=== PATIENT | female | born 1950 | race Caucasian/White ===

== ENCOUNTER 2024-06-08 16:40 | Inpatient (IN) | payer MEDICARE, OTHER ==
[~2024-06-08] VITALS: Ht 157.5 cm; Wt 79.0 kg
[2024-06-08 18:00] VITALS: BP 157/59; PULSE 70; RESP 18; TEMP 97.7; O2SAT 98
[2024-06-08 20:00] VITALS: RESP 18; O2SAT 98
[2024-06-08] MEDS ORDERED: FAMO40TA59 PO (21:49)
[2024-06-08] MEDS ORDERED: FENO135C4 PO (21:49)
[2024-06-08] MEDS ORDERED: LISI40TA13 PO (21:49)
[2024-06-08] MEDS ORDERED: SYN0.088T PO (21:49)
[2024-06-08 22:00] VITALS: BP 149/58; PULSE 68; RESP 18; TEMP 98; O2SAT 97
[2024-06-08] MEDS ORDERED: acetaminophen 325mg tablet PO PRN (22:00)
[2024-06-08] MEDS ORDERED: mag hydrox/Alum hydrox/simeth 30ml oral suspension PO PRN (22:00)
[2024-06-08] MEDS ORDERED: magnesium Cl slow-release 64mg tablet PO PRN (22:00)
[2024-06-08] MEDS ORDERED: potassium Cl 40MEQ/1/2NS 520ml 520 ML IV PRN (22:00)
[2024-06-08] MEDS ORDERED: magnesium sulf-water 4G/100mL 100 ML IV PRN (22:00)
[2024-06-08] MEDS: normal saline 1000ml 1,000 ML IV SCH (22:00)
[2024-06-08] MEDS ORDERED: HYDROcodone/acetaminophen 5mg/325mg tablet PO PRN (22:00)
[2024-06-08] MEDS ORDERED: magnesium sulf-water 2g/50mL 50 ML IV PRN (22:00)
[2024-06-08] MEDS ORDERED: ondansetron/PF 4mg/2ml inj IV PRN (22:00)
[2024-06-08 22:49] LABS: BASOPHILS % (AUTO) 0.4 % (0-1); EOSINOPHILS # (AUTO) 0.9 X10'3 (0-0.9); EOSINOPHILS % (AUTO) 10.8 % (0-6); HEMATOCRIT 41.5 % (35.0-45.0); LYMPHOCYTES # (AUTO) 1.1 X10'3 (1.1-4.8); LYMPHOCYTES % (AUTO) 12.7 % (21-51); MEAN CORPUSCULAR HEMOGLOBIN 30.7 PG (27.0-31.0); MEAN CORPUSCULAR HGB CONC 33.9 g/dL (33.0-36.5); MEAN CORPUSCULAR VOLUME 90.8 FL (78-98); MEAN PLATELET VOLUME 9.1 FL (7.4-10.4); MONOCYTES # (AUTO) 0.6 X10'3 (0-0.9); MONOCYTES % (AUTO) 6.8 % (2-12); NEUTROPHILS # (AUTO) 5.9 X10'3 (1.8-7.7); NEUTROPHILS % (AUTO) 69.3 % (42-75); PLATELET COUNT 217 X10'3 (140-440); RED BLOOD COUNT 4.57 X10'6 (4.20-5.60); WHITE BLOOD COUNT 8.5 X10'3 (4.5-11.0)
[2024-06-08 23:01] LABS: INR 1.1 INR; PROTHROMBIN TIME 11.9 SECONDS (9.0-12.0)
[2024-06-08 23:10] LABS: ALANINE AMINOTRANSFERASE 39 U/L (12-78); ALBUMIN 2.7 G/DL (3.4-5.0); ALBUMIN/GLOBULIN RATIO 0.9 (1.1-1.5); ALKALINE PHOSPHATASE 117 IU/L (46-116); ANION GAP 7 (8-16); ASPARTATE AMINO TRANSFERASE 30 U/L (10-37); BILIRUBIN,TOTAL 0.3 MG/DL (0.1-1.0); BLOOD UREA NITROGEN 5 MG/DL (7-18); BUN/CREATININE RATIO 7.4 (10.0-20.0); CALCIUM 8.2 MG/DL (8.5-10.1); CHLORIDE 103 MMOL/L (99-107); CREATININE 0.68 MG/DL (0.40-0.90); GLUCOSE 87 MG/DL (70-104); MAGNESIUM 1.8 MG/DL (1.5-2.4); PRO BRAIN NATRIURETIC PEPTIDE 180 PG/ML (0-125); SODIUM 138 MMOL/L (135-145); TOTAL CARBON DIOXIDE 28.1 MMOL/L (24-32); TOTAL PROTEIN 5.8 G/DL (6.4-8.2); eCRCL 59 ML/MIN; eGFR 85 ML/MIN
[2024-06-08] MEDS: potassium Cl 20 mEq SR tablet PO PRN (23:42)
[2024-06-09] VITALS (9 sets, daily range): BP systolic 133–163; BP diastolic 62–106; PULSE 66–88; RESP 13–20; TEMP 96.9–98.5; O2SAT 96–98
[2024-06-09] MEDS: morphine 2 MG/ML inj. syringe IV PRN (01:34)
[2024-06-09] MEDS: CefTRIAXone/D5W-Rocephin 1gm 50 ML IV SCH (01:34)
[2024-06-09] MEDS: lisinopril 20mg tablet PO STA (02:55)
[2024-06-09 03:19] LABS: BILIRUBIN,URINE NEGATIVE (Neg); CLARITY,URINE CLEAR (Clear); COLOR,URINE YELLOW (Yellow); GLUCOSE, URINE NEGATIVE (Neg); KETONES,URINE NEGATIVE (Neg); LEUKOCYTE ESTERASE ,URINE TRACE (Neg); OCCULT BLOOD,URINE LARGE (Neg); PROTEIN,URINE TRACE mg/dl (Neg); UROBILINOGEN,URINE 0.2 E.U/dL (0.2-1.0)
[2024-06-09 03:20] LABS: UA COLLECTION TYPE NON-SPECIFIED
[2024-06-09 03:26] LABS: SQUAMOUS EPITHELIAL CELL,UR MODERATE /LPF (FEW)
[2024-06-09 03:27] LABS: BACTERIA,URINE FEW /HPF (Neg); RBC,URINE 20-50 /HPF (0-2); WBC,URINE 0-4 /HPF (0-4)
[2024-06-09 03:30] LABS: NITRITES, URINE NEGATIVE (Neg)
[2024-06-09 07:28] LABS: INR 1.2 INR; PROTHROMBIN TIME 12.4 SECONDS (9.0-12.0)
[2024-06-09 07:42] LABS: BASOPHILS % (AUTO) 0.1 % (0-1); EOSINOPHILS # (AUTO) 0.9 X10'3 (0-0.9); EOSINOPHILS % (AUTO) 8.8 % (0-6); HEMOGLOBIN 13.5 g/dl (12.0-16.0); LYMPHOCYTES % (AUTO) 9.9 % (21-51); MEAN CORPUSCULAR HEMOGLOBIN 31.3 PG (27.0-31.0); MEAN CORPUSCULAR HGB CONC 34.6 g/dL (33.0-36.5); MEAN CORPUSCULAR VOLUME 90.5 FL (78-98); MEAN PLATELET VOLUME 9.8 FL (7.4-10.4); MONOCYTES # (AUTO) 0.9 X10'3 (0-0.9); MONOCYTES % (AUTO) 9.1 % (2-12); NEUTROPHILS # (AUTO) 7.4 X10'3 (1.8-7.7); NEUTROPHILS % (AUTO) 72.1 % (42-75); PLATELET COUNT 238 X10'3 (140-440); RED BLOOD COUNT 4.31 X10'6 (4.20-5.60); WHITE BLOOD COUNT 10.3 X10'3 (4.5-11.0)
[2024-06-09 07:50] LABS: ALANINE AMINOTRANSFERASE 35 U/L (12-78); ALBUMIN 2.5 G/DL (3.4-5.0); ALBUMIN/GLOBULIN RATIO 0.8 (1.1-1.5); ALKALINE PHOSPHATASE 105 IU/L (46-116); ANION GAP 7 (8-16); ASPARTATE AMINO TRANSFERASE 29 U/L (10-37); BILIRUBIN,TOTAL 0.3 MG/DL (0.1-1.0); BLOOD UREA NITROGEN 5 MG/DL (7-18); BUN/CREATININE RATIO 7.8 (10.0-20.0); CHLORIDE 103 MMOL/L (99-107); CREATININE 0.64 MG/DL (0.40-0.90); GLUCOSE 85 MG/DL (70-104); MAGNESIUM 1.8 MG/DL (1.5-2.4); PHOSPHORUS 2.5 MG/DL (2.3-4.5); POTASSIUM 3.6 MMOL/L (3.5-5.1); SODIUM 138 MMOL/L (135-145); TOTAL CARBON DIOXIDE 27.9 MMOL/L (24-32); TOTAL PROTEIN 5.5 G/DL (6.4-8.2); eCRCL 63 ML/MIN; eGFR > 90 ML/MIN
[2024-06-09] MEDS: FENOFIBRIC ACID 135 MG PO SCH (08:00)
[2024-06-09] MEDS: famotidine 20mg tablet PO SCH (08:17)
[2024-06-09] MEDS: lisinopril 20mg tablet PO SCH (08:18)
[2024-06-09] MEDS: levoTHYROXINE 88mcg tablet PO SCH (08:18)
[2024-06-09] MEDS: K and/or MAG REPLACEMENT MC SCH (08:23)
[2024-06-09 10:22] LABS: PLATELET ESTIMATE NORMAL; TOTAL CELLS COUNTED 100
[2024-06-09 13:28] LABS: C DIFF ANTIGEN NEGATIVE (NEGATIVE); C DIFF SPECIMEN=DIARRHEA? ACCEPTABLE; C DIFFICILE TOXINS A&B NEGATIVE (Neg)
[2024-06-10] VITALS (8 sets, daily range): BP systolic 124–150; BP diastolic 54–60; PULSE 61–68; RESP 12–16; TEMP 97.1–98.3; O2SAT 95–99
[2024-06-10 07:18] LABS: BASOPHILS # (AUTO) 0.1 X10'3 (0-0.2); BASOPHILS % (AUTO) 1.2 % (0-1); EOSINOPHILS # (AUTO) 0.8 X10'3 (0-0.9); EOSINOPHILS % (AUTO) 13.8 % (0-6); HEMATOCRIT 41.4 % (35.0-45.0); HEMOGLOBIN 13.5 g/dl (12.0-16.0); LYMPHOCYTES # (AUTO) 0.9 X10'3 (1.1-4.8); LYMPHOCYTES % (AUTO) 15.3 % (21-51); MEAN CORPUSCULAR HEMOGLOBIN 30.2 PG (27.0-31.0); MEAN CORPUSCULAR HGB CONC 32.7 g/dL (33.0-36.5); MEAN CORPUSCULAR VOLUME 92.5 FL (78-98); MEAN PLATELET VOLUME 9.1 FL (7.4-10.4); MONOCYTES # (AUTO) 0.6 X10'3 (0-0.9); NEUTROPHILS # (AUTO) 3.5 X10'3 (1.8-7.7); NEUTROPHILS % (AUTO) 59.7 % (42-75); PLATELET COUNT 186 X10'3 (140-440); RED BLOOD COUNT 4.48 X10'6 (4.20-5.60); RED CELL DISTRIBUTION WIDTH 14.2 % (11.5-14.5); WHITE BLOOD COUNT 5.8 X10'3 (4.5-11.0)
[2024-06-10] MEDS: acetaminophen 325mg tablet PO PRN (08:24)
[2024-06-10 08:36] LABS: ALANINE AMINOTRANSFERASE 35 U/L (12-78); ALBUMIN 2.6 G/DL (3.4-5.0); ALBUMIN/GLOBULIN RATIO 0.8 (1.1-1.5); ALKALINE PHOSPHATASE 100 IU/L (46-116); ANION GAP 7 (8-16); ASPARTATE AMINO TRANSFERASE 28 U/L (10-37); BILIRUBIN,TOTAL 0.3 MG/DL (0.1-1.0); BLOOD UREA NITROGEN 2 MG/DL (7-18); BUN/CREATININE RATIO 3.1 (10.0-20.0); CALCIUM 8.8 MG/DL (8.5-10.1); CHLORIDE 106 MMOL/L (99-107); CREATININE 0.64 MG/DL (0.40-0.90); GLUCOSE 89 MG/DL (70-104); PHOSPHORUS 3.6 MG/DL (2.3-4.5); POTASSIUM 3.9 MMOL/L (3.5-5.1); SODIUM 143 MMOL/L (135-145); TOTAL CARBON DIOXIDE 29.9 MMOL/L (24-32); TOTAL PROTEIN 5.8 G/DL (6.4-8.2); eCRCL 63 ML/MIN; eGFR > 90 ML/MIN
[2024-06-10 08:55] LABS: PLATELET ESTIMATE NORMAL; TOTAL CELLS COUNTED 100
[2024-06-11] VITALS (7 sets, daily range): BP systolic 127–153; BP diastolic 45–83; PULSE 59–76; RESP 11–20; TEMP 97.5–98; O2SAT 97–99
[2024-06-11 06:22] LABS: BASOPHILS # (AUTO) 0.1 X10'3 (0-0.2); BASOPHILS % (AUTO) 1.4 % (0-1); EOSINOPHILS # (AUTO) 0.6 X10'3 (0-0.9); EOSINOPHILS % (AUTO) 10.5 % (0-6); HEMATOCRIT 42.6 % (35.0-45.0); HEMOGLOBIN 14.3 g/dl (12.0-16.0); LYMPHOCYTES % (AUTO) 17.8 % (21-51); MEAN CORPUSCULAR HEMOGLOBIN 30.4 PG (27.0-31.0); MEAN CORPUSCULAR HGB CONC 33.6 g/dL (33.0-36.5); MEAN CORPUSCULAR VOLUME 90.5 FL (78-98); MEAN PLATELET VOLUME 8.7 FL (7.4-10.4); MONOCYTES # (AUTO) 0.6 X10'3 (0-0.9); MONOCYTES % (AUTO) 11.2 % (2-12); NEUTROPHILS # (AUTO) 3.3 X10'3 (1.8-7.7); NEUTROPHILS % (AUTO) 59.1 % (42-75); PLATELET COUNT 216 X10'3 (140-440); WHITE BLOOD COUNT 5.5 X10'3 (4.5-11.0)
[2024-06-11 06:49] LABS: ALANINE AMINOTRANSFERASE 36 U/L (12-78); ALBUMIN 2.8 G/DL (3.4-5.0); ALBUMIN/GLOBULIN RATIO 0.8 (1.1-1.5); ALKALINE PHOSPHATASE 99 IU/L (46-116); ANION GAP 7 (8-16); ASPARTATE AMINO TRANSFERASE 34 U/L (10-37); BILIRUBIN,TOTAL 0.3 MG/DL (0.1-1.0); BLOOD UREA NITROGEN 3 MG/DL (7-18); CALCIUM 8.6 MG/DL (8.5-10.1); CHLORIDE 102 MMOL/L (99-107); GLUCOSE 86 MG/DL (70-104); MAGNESIUM 1.9 MG/DL (1.5-2.4); PHOSPHORUS 3.9 MG/DL (2.3-4.5); POTASSIUM 3.4 MMOL/L (3.5-5.1); SODIUM 137 MMOL/L (135-145); THYROID STIMULATING HORMONE 13.14 ulU/ml (0.34-4.50); TOTAL CARBON DIOXIDE 27.6 MMOL/L (24-32); TOTAL PROTEIN 6.1 G/DL (6.4-8.2); eCRCL 67 ML/MIN; eGFR > 90 ML/MIN
[2024-06-11 07:18] LABS: TOTAL CELLS COUNTED 100
[2024-06-11 07:19] LABS: PLATELET ESTIMATE NORMAL
[2024-06-11] MEDS: potassium Cl 20 mEq SR tablet PO PRN ×2 (14:49→22:55)
[2024-06-11] MEDS ORDERED: magnesium sulf-water 2g/50mL 50 ML IV PRN (22:50)
[2024-06-11] MEDS ORDERED: potassium Cl 20 mEq SR tablet PO PRN (22:50)
[2024-06-11] MEDS ORDERED: magnesium sulf-water 4G/100mL 100 ML IV PRN (22:50)
[2024-06-11] MEDS ORDERED: magnesium Cl slow-release 64mg tablet PO PRN (22:50)
[2024-06-11] MEDS ORDERED: potassium Cl 40MEQ/1/2NS 520ml 520 ML IV PRN (22:50)
[2024-06-12] VITALS (25 sets, daily range): BP systolic 124–178; BP diastolic 56–75; PULSE 60–88; RESP 11–23; TEMP 97.6–98.3; O2SAT 92–100
[2024-06-12 06:28] LABS: ALANINE AMINOTRANSFERASE 38 U/L (12-78); ALBUMIN 2.7 G/DL (3.4-5.0); ALBUMIN/GLOBULIN RATIO 0.8 (1.1-1.5); ALKALINE PHOSPHATASE 91 IU/L (46-116); ANION GAP 7 (8-16); ASPARTATE AMINO TRANSFERASE 29 U/L (10-37); BILIRUBIN,TOTAL 0.3 MG/DL (0.1-1.0); BLOOD UREA NITROGEN 4 MG/DL (7-18); BUN/CREATININE RATIO 5.8 (10.0-20.0); CALCIUM 8.7 MG/DL (8.5-10.1); CHLORIDE 109 MMOL/L (99-107); CREATININE 0.69 MG/DL (0.40-0.90); GLUCOSE 88 MG/DL (70-104); PHOSPHORUS 4.7 MG/DL (2.3-4.5); POTASSIUM 4.1 MMOL/L (3.5-5.1); SODIUM 143 MMOL/L (135-145); TOTAL CARBON DIOXIDE 26.9 MMOL/L (24-32); TOTAL PROTEIN 5.9 G/DL (6.4-8.2); eCRCL 58 ML/MIN; eGFR 84 ML/MIN
[2024-06-12 07:50] LABS: BASOPHILS # (AUTO) 0.1 X10'3 (0-0.2); BASOPHILS % (AUTO) 1.5 % (0-1); EOSINOPHILS # (AUTO) 0.2 X10'3 (0-0.9); EOSINOPHILS % (AUTO) 5.6 % (0-6); HEMATOCRIT 43.6 % (35.0-45.0); HEMOGLOBIN 14.5 g/dl (12.0-16.0); LYMPHOCYTES % (AUTO) 22.1 % (21-51); MEAN CORPUSCULAR HEMOGLOBIN 30.2 PG (27.0-31.0); MEAN CORPUSCULAR HGB CONC 33.2 g/dL (33.0-36.5); MEAN CORPUSCULAR VOLUME 90.8 FL (78-98); MEAN PLATELET VOLUME 7.9 FL (7.4-10.4); MONOCYTES # (AUTO) 0.7 X10'3 (0-0.9); MONOCYTES % (AUTO) 14.9 % (2-12); NEUTROPHILS # (AUTO) 2.5 X10'3 (1.8-7.7); NEUTROPHILS % (AUTO) 55.9 % (42-75); PLATELET COUNT 245 X10'3 (140-440); WHITE BLOOD COUNT 4.5 X10'3 (4.5-11.0)
[2024-06-12 09:29] LABS: FREE T4 (FREE THYROXINE) 1.05 NG/DL (0.73-1.40)
[2024-06-12] MEDS ORDERED: BUPIVAcaine 2.5mg/ml inj 50ml vial (contains preservative) ONE (10:04)
[2024-06-12] MEDS ORDERED: midazolam 1 mg/ML 2ml injection ONE (10:09)
[2024-06-12] MEDS ORDERED: fentaNYL /PF 50mcg/ml 5ml ampule ONE (10:10)
[2024-06-12] MEDS ORDERED: proCHLORperazine 10 MG/2 ml inj IV PRN (10:25)
[2024-06-12] MEDS ORDERED: labetalol 20mg/4ml (5mg/ml) syringe IV PRN (10:25)
[2024-06-12] MEDS ORDERED: ondansetron/PF 4mg/2ml inj IV PRN ×2 (10:25→12:00)
[2024-06-12] MEDS ORDERED: ringers solution, lacted 1,000 ML IV SCH (10:25)
[2024-06-12] MEDS ORDERED: morphine 2 MG/ML inj. syringe IV PRN (10:25)
[2024-06-12] MEDS ORDERED: hydrALAZINE 20mg/ml inj. IV PRN (10:25)
[2024-06-12] MEDS ORDERED: meperidine/PF 25mg/ml syringe IV PRN ×2 (10:25)
[2024-06-12] MEDS ORDERED: sevoflurane 250ml liquid IH ONE (10:30)
[2024-06-12] MEDS ORDERED: ePHEDrine 50MG/ML INJ. ONE ×2 (10:52→10:56)
[2024-06-12] MEDS ORDERED: LIDOcaine 2% (20mg/ml) 5ml vial ONE (10:56)
[2024-06-12] MEDS ORDERED: 0.9 % SODIUM CHLORIDE 10 ML VIAL ONE (10:56)
[2024-06-12] MEDS ORDERED: propofol inj 20 ML IV ONE (10:56)
[2024-06-12] MEDS ORDERED: ceFOXitin 1000 MG inj ONE ×2 (10:56)
[2024-06-12] MEDS ORDERED: rocuronium 10mg/ml inj IV ONE (10:56)
[2024-06-12] MEDS ORDERED: ondansetron/PF 4mg/2ml inj ONE (11:05)
[2024-06-12] MEDS ORDERED: dexamethasone sod phosphate 4mg/ml inj. ONE (11:05)
[2024-06-12] MEDS: BUPIVAcaine/PF 2.5 mg/ml (0.25%) 30ml vial IJ ONE (11:18)
[2024-06-12] MEDS ORDERED: neostigmine methylsulfate 1 MG/ML 10ml vial ONE (11:35)
[2024-06-12] MEDS ORDERED: sugammadex 200mg/2ml injection IV ONE (11:50)
[2024-06-12] MEDS ORDERED: naloxone 0.4 mg/ml inj IV PRN (12:00)
[2024-06-12] MEDS ORDERED: HYDROcodone/acetaminophen 5mg/325mg tablet PO PRN (12:00)
[2024-06-12] MEDS: acetaminophen 1,000mg/100ml IV 100 ML IV ONE (12:15)
[2024-06-12] MEDS: meperidine/PF 25mg/ml syringe IV PRN (12:17)
[2024-06-12] MEDS: morphine 4 MG/ML inj SYRINge IV PRN (13:00)
[2024-06-12] MEDS: HYDROcodone/acetaminophen 10/325mg tab PO PRN (16:59)
[2024-06-12] MEDS: K and/or MAG REPLACEMENT MC SCH (20:00)
[2024-06-13] VITALS (8 sets, daily range): BP systolic 125–139; BP diastolic 56–71; PULSE 60–78; RESP 11–19; TEMP 96.9–98; O2SAT 95–98
[2024-06-13] MEDS ORDERED: morphine 2 MG/ML inj. syringe IV ONE ×2 (03:45→03:50)
[2024-06-13] MEDS: morphine 2 MG/ML inj. syringe IV ONE (04:01)
[2024-06-13 06:11] LABS: BASOPHILS % (AUTO) 0.5 % (0-1); EOSINOPHILS % (AUTO) 0.2 % (0-6); HEMATOCRIT 42.3 % (35.0-45.0); LYMPHOCYTES # (AUTO) 0.8 X10'3 (1.1-4.8); LYMPHOCYTES % (AUTO) 10.3 % (21-51); MEAN CORPUSCULAR HEMOGLOBIN 30.2 PG (27.0-31.0); MEAN CORPUSCULAR HGB CONC 33.1 g/dL (33.0-36.5); MEAN CORPUSCULAR VOLUME 91.4 FL (78-98); MEAN PLATELET VOLUME 8.6 FL (7.4-10.4); MONOCYTES # (AUTO) 0.5 X10'3 (0-0.9); MONOCYTES % (AUTO) 7.2 % (2-12); NEUTROPHILS # (AUTO) 6.1 X10'3 (1.8-7.7); NEUTROPHILS % (AUTO) 81.8 % (42-75); PLATELET COUNT 262 X10'3 (140-440); RED BLOOD COUNT 4.63 X10'6 (4.20-5.60); RED CELL DISTRIBUTION WIDTH 14.2 % (11.5-14.5); WHITE BLOOD COUNT 7.5 X10'3 (4.5-11.0)
[2024-06-13 06:22] LABS: ALANINE AMINOTRANSFERASE 50 U/L (12-78); ALBUMIN 2.7 G/DL (3.4-5.0); ALBUMIN/GLOBULIN RATIO 0.8 (1.1-1.5); ALKALINE PHOSPHATASE 91 IU/L (46-116); ANION GAP 8 (8-16); ASPARTATE AMINO TRANSFERASE 56 U/L (10-37); BILIRUBIN,TOTAL 0.3 MG/DL (0.1-1.0); BLOOD UREA NITROGEN 5 MG/DL (7-18); BUN/CREATININE RATIO 8.1 (10.0-20.0); CALCIUM 8.6 MG/DL (8.5-10.1); CHLORIDE 103 MMOL/L (99-107); CREATININE 0.62 MG/DL (0.40-0.90); GLUCOSE 93 MG/DL (70-104); MAGNESIUM 1.9 MG/DL (1.5-2.4); PHOSPHORUS 4.1 MG/DL (2.3-4.5); POTASSIUM 3.9 MMOL/L (3.5-5.1); SODIUM 139 MMOL/L (135-145); TOTAL CARBON DIOXIDE 28.3 MMOL/L (24-32); eCRCL 65 ML/MIN; eGFR > 90 ML/MIN
[2024-06-14] VITALS (7 sets, daily range): BP systolic 116–136; BP diastolic 48–65; PULSE 63–83; RESP 11–19; TEMP 97.3–98.6; O2SAT 93–99
[2024-06-14] MEDS: Melatonin 3mg tablet PO ONE (00:15)
[2024-06-14] MEDS ORDERED: HYDR-3965 PO (14:52)
== END 2024-06-14 15:55 | disposition home or self-care (01) | DRG 417 ==
LOC: PCU 3S 19:23
PROVIDERS: ADMIT Family Medicine; ATTEND Family Medicine
PROC: 8E0W4CZ Robotic Assisted Procedure of Trunk Region, Percutaneous Endoscopic Approach (ICD-10-PCS; 2024-06-12)
PROC: 0FT44ZZ Resection of Gallbladder, Percutaneous Endoscopic Approach (ICD-10-PCS; principal; 2024-06-12 10:30)
DX: K80.01 Calculus of gallbladder with acute cholecystitis with obstruction (principal); K29.01 Acute gastritis with bleeding; K56.600 Partial intestinal obstruction, unspecified as to cause; E03.9 Hypothyroidism, unspecified; E78.5 Hyperlipidemia, unspecified; I10 Essential (primary) hypertension; K21.9 Gastro-esophageal reflux disease without esophagitis; M54.9 Dorsalgia, unspecified; E66.9 Obesity, unspecified; Z68.31 Body mass index [BMI] 31.0-31.9, adult; Z90.710 Acquired absence of both cervix and uterus; K57.30 Diverticulosis of large intestine without perforation or abscess without bleeding
CPT/HCPCS: 36415; 74181; 80053; 81001; 83605; 83735; 83880; 84100; 84132; 84439; 84443; 84480; 85007; 85025; 85610; 87040; 87081; 87324; 87449; 88304; 93005; 97161; 97530; A4215; A4615; A4618; A5200; A7000; G0378; J0131; J0694; J0696; J1100; J2003; J2175; J2250; J2270; J2405; J2704; J2710; J3010; J3490; J7030; J7040; J7120